=== PATIENT | male | born 1975 | race Caucasian/White ===

== ENCOUNTER 2023-07-24 15:48 | Outpatient (AMB) | payer OTHER, SELFPAY ==
--- NOTE | 2023-07-24 15:55 | MHC.PC.OV ---
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 Will order labs. Due for colon screen, will refer to GI. Pt was told previously by a urologist that he had an enlarged prostate. Will order PSA. Pt's blood pressure is elevated today. He reports that it is much more stable outside of the office. Denies chest pain, shortness of breath, headache, dizziness, and blurred vision. 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 COUNT INCLUDES THE [facility] Surgical History (Updated 07/24/23 @ 16:07 by Aron Zhu [facility]) S/P lumbar fusion S/P placement of nerve stimulator Hx of laminectomy Family History Mother Hypertension High cholesterol Father Heart attack Social History Housing: House Alcohol intake: never Patient Tobacco Use Status: Former Tobacco user Quit Date: 2006 Tobacco use type: Smokeless Tobacco Second Hand Smoke Exposure: No service: No Current occupational status: unemployed Cognitive needs: No Hearing needs: No Vision needs: Yes Questionnaire PHQ-9 Over the last 2 weeks, how often have you been bothered by any of the following problems? 1. Little interest or pleasure in doing things: several days 2. Feeling down, depressed, or hopeless: more than half the days 3. Trouble falling or staying asleep, or sleeping too much: more than half the days 4. Feeling tired or having little energy: several days 5. Poor appetite or overeating: not at all 6. Feeling bad about yourself - or that you are a failure or have let yourself or your family down: not at all 7. Trouble concentrating on things, such as reading the newspaper or watching television: not at all 8. Moving or speaking so slowly that other people could have noticed. Or the opposite - being so fidgety or restless that you have been moving around a lot more than usual: not at all 9. Thoughts that you would be better off or of hurting yourself in some way: not at all Total score: 6 Depression Screening Interpretation: Negative Depression Screening Done: Yes 36375 - PHQ-9 Billing: Yes Source: Developed by Drs. Saad Torrez, Xochilt Barrios, Krishan Mera and colleagues, with an educational saskia from [employer]. Thrive Questionnaire Date Thrive assessed: 07/24/23 I am a: Patient What is your living situation today?: I have a steady place to live Within the past 12 months, did the food you bought not last and you didn't have the money to get more?: Never true Within the past 12 months, did you worry whether your food would run out before you got money to buy more?: Never true Do you have trouble paying for medicines?: No Do you have trouble getting transportation to medical appointments?: No Do you have trouble paying your heating and electricity bill?: No Do you have trouble taking care of your child, family member or friend?: No Do you have trouble with day-to-day activities such as bathing, preparing meals, shopping, managing finances, etc.?: No Are you currently unemployed and looking for a job?: No Are you interested in more education?: No Please select the resources that you would like help with: None Currently or been in a relationship where the following occur: no concerns reported THRIVE Score: 0 KESHAWN-7 AMB Questionnaire KESHAWN-7 Date KESHAWN - 7 assessed: 07/24/23 Feeling nervous, anxious, or on edge: 0 = Not at all Not being able to stop or control worryin = Not at all Worrying too much about different things: 1 = Several days Trouble relaxin = Not at all Being so restless that it is hard to sit still: 0 = Not at all Becoming easily annoyed or irritable: 1 = Several days Feeling afraid as if something awful might happen: 0 = Not at all Total KESHAWN-7 score (0-4 normal; 5-9 mild; 10-14 moderate; 15-21 severe): 2 Source: Developed by Drs. Saad Torrez, Xochilt Barrios, Krishan Mera and colleagues, with an educational saskia from [employer]. KESHAWN-7 Assessment Billing KESHAWN-7 Assessment Tool: KESHAWN-7 Assessment 11559 Review of Systems Const Denies chills and Denies fever(s) Eyes Denies blurry vision ENT Denies vertigo, Denies dizziness and Denies sore throat Card Denies chest pain at rest, Denies chest pain with activity, Denies diaphoresis, Denies dyspnea and Denies dyspnea on exertion Resp Denies cough, Denies dyspnea, Denies dyspnea on exertion and Denies wheezing GI Denies abdominal pain, Denies melena, Denies hematochezia, Denies constipation, Denies diarrhea and Denies loose stools Denies hematuria Musc Denies numbness and Denies tingling Skin/Breast Denies lesions Neuro Denies vertigo, Denies dizziness, Denies numbness and Denies tingling Psych Denies anxiety, Denies depression, Denies homicidal ideation, Denies suicidal ideation and Denies other (substance abuse) Aller/Immun Denies wheezing Physical exam (Primary Care) Vital Signs: Last Vital Signs Pulse 86 07/24/23 16:00 BP 132/80 07/24/23 16:34 Pulse Ox 98 07/24/23 16:00 Oxygen Delivery Method Room Air 07/24/23 16:00 BMI result Body Mass Index 30.0 Tobacco/Smoking Status: Tobacco use Status Tobacco use date assessed 07/24/23 07/24/23 16:13 Patient Tobacco Use Status Former Tobacco user 07/24/23 16:13 Tobacco use type Smokeless Tobacco 07/24/23 16:13 PHQ-9: PHQ-9 Score PHQ-9: Total score 6 07/24/23 16:34 Depression Screening Interpretation: Negative Thrive Assessment: Date of Thrive Assessment Date Thrive assessed 07/24/23 07/24/23 16:13 Currently or been in a relationship where the following occur: no concerns reported Const General: cooperative Nutritional Appearance: well nourished Orientation/consciousness: patient oriented x3 HENMT Head: Yes normal to inspection, Yes normocephalic and Yes atraumatic Ears: TM's normal bilaterally Eyes General: appearance normal, both eyes and all related structures Alignment and Position: alignment normal and position normal Neck Neck: Yes normal visual inspection and Yes no lymphadenopathy Thyroid: Thyroid normal Resp Effort & Inspection: normal respiratory effort Auscultation: clear to auscultation bilaterally Cardio Rate: regular rate Rhythm: regular rhythm Heart sounds: S1 normal heart sound present, S2 normal heart sound present and no murmurs GI Palpation (GI): Soft to palpation and nontender Auscultation: normal bowel sounds Male General Exam: Yes normal external exam Penis: normal penis Scrotum: scrotum normal, testes descended bilaterally and no inguinal hernias Testes: no testicular mass Skin Rashes: no rashes Neuro General: patient oriented x3, moves all extremities, no focal motor deficits and deep tendon reflexes 2+ bilaterally Romberg Test: Negative Psych Appearance: grossly normal Mental Status: mental status grossly normal Speech and movement: Normal speech and movement present Affect: normal affect Attitude: cooperative Thought process: Normal thought process present Thought content: Normal thought content present Insight: Good insight present (Psych) Judgement: Good judgement present (Psych) Assessment and Plan Assessment & Plan (1) Physical exam: Code(s): Z00.00 - Encounter for general adult medical examination without abnormal findings Plan: Labs ordered (2) Screening for colon cancer: Code(s): Z12.11 - Encounter for screening for malignant neoplasm of colon Plan: Referred to GI (3) Enlarged prostate: Code(s): N40.0 - Benign prostatic hyperplasia without lower urinary tract symptoms Plan: psa ordered Plan The patient agreed to the use of a medical sales for this encounter. Scribed for FRANCO Driver by julian Jorgensen scribe, on 07/24/2023 at 16:15 EST. Orders: Orders Complete Blood Count Auto Diff Today Z00.00 - Encounter for general adult medical examination without abnormal findings Comprehensive [place]. Panel Fast Today Z00.00 - Encounter for general adult medical examination without abnormal findings Lipid Panel Today Z00.00 - Encounter for general adult medical examination without abnormal findings Prostate Specific Antigen Scr Today N40.0 - Benign prostatic hyperplasia without lower urinary tract symptoms TSH reflex Free T4 Today Z00.00 - Encounter for general adult medical examination without abnormal findings UA CC w/rflx Micro + Cult Today Z00.00 - Encounter for general adult medical examination without abnormal findings Referrals Gastroenterology Referral Z12.11 - Encounter for screening for malignant neoplasm of colon Coding Level of Care Code New Pt Prev Care 40-64y(62086) Diagnoses Physical exam Z00.00 Screening for colon cancer Z12.11 Enlarged prostate N40.0 Additional Codes KESHAWN-7 Assessment Billing - KESHAWN-7 Assessment Tool: KESHAWN-7 Assessment 88735 ([id number])
[2023-07-24 16:00] VITALS: BP 150/90; PULSE 86; O2SAT 98
[2023-07-24 16:11] VITALS: BP 146/88
[2023-07-24 16:34] VITALS: BP 132/80
== END 2023-07-24 16:58 | disposition home or self-care (01) ==
PROVIDERS: PCP Nurse Practitioner Family; Visit Provider Nurse Practitioner Family
DX: Z00.00 Encounter for general adult medical examination without abnormal findings (principal); Z12.11 Encounter for screening for malignant neoplasm of colon; N40.0 Benign prostatic hyperplasia without lower urinary tract symptoms
CPT/HCPCS: 99386

== ENCOUNTER 2023-07-25 07:50 | Outpatient (REF) | payer OTHER, SELFPAY ==
[2023-07-25 11:18] LABS: MANUAL DIFF FLAG NO
[2023-07-25 11:30] LABS: Appearance Urine Turbid; Color Urine Yellow; Glucose Urine UA Negative (Negative); Leukocyte Esterase Urine Negative (Negative); Nitrite Urine Positive (Negative); Specific Gravity - Urine >= 1.030 (1.005-1.025); UMIC TRIGGER UACC YES; Urine Blood Negative (Negative); Urine Ketones Negative (Negative); Urine Protein Trace mg/dL (Neg-Trace)
[2023-07-25 11:34] LABS: Basophils Absolute Auto 0.1 X10*3/uL (0.0-0.2); Basophils Percent Auto 1.2 % (0-2); Eosinophils Absolute Auto 0.5 X10*3/uL (0.0-0.4); Hematocrit 46.3 % (42.0-52.0); Hemoglobin 16.1 g/dl (14.0-18.0); Imm Gran Abs Auto 0.04 X10*3/uL (0.00-0.03); Imm Gran Pct Auto 0.5 % (0.0-0.4); Lymphocytes Absolute Auto 2.7 X10*3/uL (1.2-4.9); Lymphocytes Percent Auto 34.2 % (20-40); Mean Corpuscular HGB Conc 34.8 g/dl (31.0-36.0); Mean Corpuscular Hemoglobin 29.2 pg (27.0-33.0); Mean Corpuscular Volume 83.9 fL (80.0-98.0); Mean Platelet Volume 10.1 fL (9.4-12.4); Monocytes Absolute Auto 0.9 X10*3/uL (0.1-1.2); Monocytes Percent Auto 11.7 % (2-11); Neutrophils Absolute Auto 3.7 x10*3/uL (2.0-8.3); Neutrophils Percent Auto 46.4 % (45-73); Platelet Count 263 X10*3/uL (160-400); Red Blood Count 5.52 X10*6/uL (4.60-5.80); Red Cell Distribution Width 12.5 % (11.0-16.0)
[2023-07-25 11:59] LABS: Alanine Aminotransferase 13 U/L (0-40); Albumin Level 4.4 g/dL (3.5-5.0); Alkaline Phosphatase 51 U/L (39-117); Anion Gap 13 (12-20); Aspartate Amino Transferase 18 U/L (5-37); Bilirubin Total 0.6 mg/dL (0.0-1.0); Blood Urea Nitrogen 13 mg/dL (9-16); Calcium 9.2 mg/dL (8.4-10.2); Carbon Dioxide 28 mmol/L (22-29); Chloride 105 mmol/L (96-108); Cholesterol 190 mg/dL (<200); Estimated Glomerular Filt Rate > 60; Glucose Fasting 78 mg/dL (60-99); HDL Cholesterol 34 mg/dL (>40); LDL Cholesterol Calculated 117 mg/dL (<100); Potassium 3.7 mmol/L (3.3-5.1); Sodium 142 mmol/L (135-145); Total Protein 7.6 g/dL (6.5-8.0); Triglycerides 199 mg/dL (<150)
[2023-07-25 12:05] LABS: Bacteria Urine 1+ (None Seen); Calcium Oxalate Crystals Urine Present; Hyaline Casts Urine 0-2 /LPF (0-2); Other Crystals Urine Present; RBC Urine 0-2 /HPF (0-2); Squamous Epithelial Cell Urine 0-2 /HPF (0-2); UACC Culture Trigger YES; WBC Urine 0-5 /HPF (0-5)
[2023-07-25 12:15] LABS: TSH reflex Free T4 4.28 uIU/mL (0.32-4.0)
[2023-07-25 13:10] LABS: Free T4 (Free Thyroxine) 1.05 ng/dL (0.71-1.85)
== END 2023-07-25 07:51 | disposition home or self-care (01) ==
LOC: HO.HMGCLDS 07:50
PROVIDERS: PCP Nurse Practitioner Family; Visit Provider Nurse Practitioner Family
DX: Z00.00 Encounter for general adult medical examination without abnormal findings (principal); Z12.5 Encounter for screening for malignant neoplasm of prostate; N40.0 Benign prostatic hyperplasia without lower urinary tract symptoms
CPT/HCPCS: 36415; 80053; 80061; 81001; 81003; 84153; 84439; 84443; 85025; 87086

== ENCOUNTER 2023-10-31 11:00 | Outpatient (AMB) | payer OTHER, SELFPAY ==
[2023-10-31 11:04] VITALS: BP 140/78; PULSE 74; TEMP 36.3; O2SAT 96; BMI 30.3
--- NOTE | 2023-10-31 11:04 | MHC.OFFWIV ---
Intake Vital Signs 10/31/23 11:04 Height 5 ft 11 in Weight 217 lb BMI 30.3 BP 140/78 H Blood Pressure Location Lt brachial Position Sitting Pulse 74 Pulse Source Pulse Oximeter Temp 97.3 F Temp Source Temporal Artery Scan Pulse Oximetry (%) 96 Oxygen Delivery Method Room Air Intake Visit Reasons: EP ED? Erectile dysfunction? Intake Note: pt is here today for erectile dysfunction started 1 week ago Patient Tobacco Use Status: Former Tobacco user Quit Date: 2006 Allergies ketorolac [From Toradol] Allergy (Mild, Verified 10/31/23 11:41) Hives Medication List - Last Reconciled 10/31/23 by Manjit Pablo MD ibuprofen 800 mg PO TID Do you need a note to return to daycare/school/sports/work: No HPI EP ED? Erectile dysfunction? HPI Details 48-year-old male presented to the office for a sick visit. Patient after 4 years tried to be sexually active over the weekend. He has had multiple back surgeries. He has with a new partner, heterosexual. Unsatisfactory erection, incomplete intercourse with no ejaculation. Tried many times with no success. [facility] Surgical History (Updated 07/24/23 @ 16:07 by Aron Zhu PARTS COUNTER CLERK) S/P lumbar fusion S/P placement of nerve stimulator Hx of laminectomy Family History Mother Hypertension High cholesterol Father Heart attack Social History Housing: House Alcohol intake: never Patient Tobacco Use Status: Former Tobacco user Quit Date: 2006 Tobacco use type: Smokeless Tobacco Second Hand Smoke Exposure: No service: No Current occupational status: unemployed Cognitive needs: No Hearing needs: No Vision needs: Yes Physical Exam Vital Signs: Last Vital Signs Temp 97.3 F 10/31/23 11:04 Pulse 74 10/31/23 11:04 BP 140/78 H 10/31/23 11:04 Pulse Ox 96 10/31/23 11:04 Oxygen Delivery Method Room Air 10/31/23 11:04 BMI result Body Mass Index 30.3 Assessment & Plan Assessment & Plan (1) Erectile dysfunction: Code(s): N52.9 - Male erectile dysfunction, unspecified Plan: A prescription for Viagra given. Patient was advised to follow-up with primary care for further workup. Coding Level of Care Code Est Pt Level 3 (71586) Diagnoses Erectile dysfunction N52.9
== END 2023-10-31 12:11 | disposition home or self-care (01) ==
PROVIDERS: PCP Nurse Practitioner Family; Visit Provider Internal Medicine
DX: N52.9 Male erectile dysfunction, unspecified (principal)
CPT/HCPCS: 99213

== ENCOUNTER 2023-11-29 08:23 | Outpatient (AMB) | payer OTHER, SELFPAY ==
--- NOTE | 2023-11-29 08:24 | MHC.OFFVIS ---
Vital Signs 11/29/23 08:30 Height 5 ft 11 in Weight 217 lb 13.067 oz BMI 30.4 BP 136/84 Blood Pressure Location Rt brachial Position Sitting Pulse 70 Pulse Source Pulse Oximeter Pulse Oximetry (%) 98 Oxygen Delivery Method Room Air Intake Visit Reasons: Colonoscopy Screening Intake Note: Charlie presents in office today for a scheduled initial office visit / colo scrn; CC; Charlie denies any previous hx of colo s/p. Pt reports that their PCP recommended s/p strictly based on age related concerns. Pt denies any significant sx or concerns at this time. 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 male here today for pre colonoscopy screening.? Patient was sent to us by his PCP.? This is his first colonoscopy screening.? Patient denies any gastrointestinal symptoms in the past or at present.? Denies any personal or family history of gastrointestinal disease, colon polyps, or CRC.? Denies history of difficulty with sedation or anesthesia in the past.? Negative for history of sleep apnea.? Denies any history of cardiac, renal, pulmonary, or hepatic disease.?? No history of infectious? diseases like hepatitis A, B, C, HIV or tuberculosis.? Patient is not on any anticoagulation PFSH Surgical History S/P lumbar fusion S/P placement of nerve stimulator Hx of laminectomy Family History Mother Hypertension High cholesterol Father Heart attack Social History Housing: House Alcohol intake: never Patient Tobacco Use Status: Former Tobacco user Tobacco use type: Smokeless Tobacco Second Hand Smoke Exposure: No service: No Current occupational status: unemployed Cognitive needs: No Hearing needs: No Vision needs: Yes Review of Systems Const Denies weight gain and Denies weight loss ENT Reports no additional complaints, Denies dysphagia and Denies odynophagia Card Reports no additional complaints Resp Reports no additional complaints GI Denies abdominal pain, Denies belching, Denies melena, Denies bloating, Denies change in bowel habits, Denies dysphagia, Denies excessive flatus, Denies dyspepsia, Denies heartburn, Denies diarrhea, Denies loose stools, Denies nausea, Denies odynophagia and Denies vomiting Reports no additional complaints Musc Reports no additional complaints Neuro Reports no additional complaints Psych Reports no additional complaints Endo Reports no additional complaints Physical Exam Vital Signs: Last Vital Signs Pulse 70 11/29/23 08:30 BP 136/84 11/29/23 08:30 Pulse Ox 98 11/29/23 08:30 Oxygen Delivery Method Room Air 11/29/23 08:30 BMI result Body Mass Index 30.4 Const General: healthy appearing, no acute distress and well developed Nutritional Appearance: well nourished Orientation/consciousness: patient oriented x3 Resp Effort & Inspection: normal respiratory effort, able to speak in complete sentences, no tracheal deviation and symmetric chest movement Auscultation: clear to auscultation bilaterally Cardio Rate: regular rate GI Inspection: Yes normal to inspection and No distended Palpation (GI): Soft to palpation, not firm, nontender and No hepatosplenomegaly present Auscultation: normal bowel sounds General: Yes no CVA tenderness Back/Spine/Pelvis Back: no CVA tenderness Skin General skin exam: elasticity normal, turgor normal and dry skin Neuro General: patient oriented x3 Psych Appearance: grossly normal Mental Status: mental status grossly normal Assessment & Plan Assessment & Plan (1) Screening for colon cancer: Code(s): Z12.11 - Encounter for screening for malignant neoplasm of colon Category: Medical Plan Patient denies any GI, cardiac or respiratory symptoms.? Denies any issues with anesthesia in the past.? History of sleep apnea, not on CPAP.? No history infectious diseases in the past or present.? Not on any anticoagulation therapy.? No family or personal history of colon cancer or polyps.? Patient denies melena, hematochezia, unintentional weight loss or ribbon like stools.? Discussed at length the pre-procedure,? prep, diet & medications as well as what to expect prior, during and after the procedure.?? Stressed the importance of good bowel prep.? Recommended the use of Vaseline or Calmoseptine OTC & baby wipes with bowel movements to promote comfort.? ?Patient verbalizes understanding and agrees to plan of care.? He was given the opportunity to ask questions and all questions answered.? We will see him after the procedure.? Medications: New bisacodyl (Dulcolax (bisacodyl)) take 4 tabs at noon the day before your colonoscopy 20 mg (4 x 5 mg) PO ONCE 4 tabs 0RF 1 day Z12.11 - Encounter for screening for malignant neoplasm of colon polyethylene glycol 3350 (Miralax) As directed by gastroenterology department at [facility] 238 grams PO ONCE 238 grams 0RF Z12.11 - Encounter for screening for malignant neoplasm of colon Coding Level of Care Code New Pt Level 3 (82405) Diagnoses Screening for colon cancer Z12.11 Time Spent (min) 40 Comment 30 minutes spent with patient and additional 10 minutes spent reviewing his records
[2023-11-29 08:30] VITALS: BP 136/84; PULSE 70; O2SAT 98; BMI 30.4
== END 2023-11-29 09:18 | disposition home or self-care (01) ==
PROVIDERS: PCP Nurse Practitioner Family; Visit Provider Nurse Practitioner Family
DX: Z01.818 Encounter for other preprocedural examination (principal); Z12.11 Encounter for screening for malignant neoplasm of colon
CPT/HCPCS: S0285

== ENCOUNTER → 2023-11-29 08:23 | Outpatient (BNVA) | payer OTHER, SELFPAY | PROVIDERS: PCP Nurse Practitioner Family; Visit Provider Nurse Practitioner Family ==

== ENCOUNTER 2024-05-07 06:25 | Day surgery (SDC) | payer OTHER, SELFPAY ==
[2024-05-01 13:44] VITALS: BMI 30.4
--- NOTE | 2024-05-06 09:32 | HO.ANESPROP2 ---
Documented by User: Brenda Jasso NP 05/06/24 09:33 HPI - Anesthesia Eval Consult details Narrative: 48yo M for Colonoscopy PMF Active Problems Active Problems: All Active Problems Abnormal urinalysis (Acute) Elevated TSH (Acute) Enlarged prostate (Acute) Screening for colon cancer (Acute) Physical exam (Acute) Past Medical History Medical History Enlarged prostate Family History Family History Mother Hypertension High cholesterol Father Heart attack Surgical History Surgical History S/P lumbar fusion S/P placement of nerve stimulator Hx of laminectomy Social History Social History Housing: House Alcohol intake: never Patient Tobacco Use Status: Former Tobacco user Tobacco use type: Smokeless Tobacco Second Hand Smoke Exposure: No Have you been hit, kicked, punched, or otherwise hurt by someone within the past year? If so, by whom?: No Are you DNR?: No Advance Directives: No Advance Directives Information Provided: Yes service: No Current occupational status: unemployed Cognitive needs: No Hearing needs: No Vision needs: Yes Meds Allergies Allergy/AdvReac Type Severity Reaction Status Date / Time ketorolac [From Toradol] Allergy Mild Hives Verified 11/29/23 08:30 Home Medications ?Medication ?Instructions ?Recorded ?Confirmed ?Last Taken ?Type No Known Home Meds 05/07/24 05/07/24 Unknown History Exam Height,Weight and Vital Signs: Height 5 ft 11 in Weight 98.883 kg Assessment and Plan Assessment Anesthesia Assessment: Chart Reviewed Documented by User: Klaudia Llamas MD 05/07/24 08:48 PMFSH Past Medical History Medical History Enlarged prostate Family History Family History Mother Hypertension High cholesterol Father Heart attack Family history of problems with anesthesia: No Surgical History Surgical History S/P lumbar fusion S/P placement of nerve stimulator Hx of laminectomy History of Problems with Anesthesia: No Social History Social History Housing: House Alcohol intake: never Patient Tobacco Use Status: Former Tobacco user Tobacco use type: Smokeless Tobacco Second Hand Smoke Exposure: No Have you been hit, kicked, punched, or otherwise hurt by someone within the past year? If so, by whom?: No Are you DNR?: No Advance Directives: No Advance Directives Information Provided: Yes service: No Current occupational status: unemployed Cognitive needs: No Hearing needs: No Vision needs: Yes Meds Allergies Allergy/AdvReac Type Severity Reaction Status Date / Time ketorolac [From Toradol] Allergy Mild Hives Verified 11/29/23 08:30 Home Medications ?Medication ?Instructions ?Recorded ?Confirmed ?Last Taken ?Type No Known Home Meds 05/07/24 05/07/24 Unknown History Exam Airway Mallampati Class: II TM Dist: >3cm Neck ROM: Full Heart: rrr Lungs: cta Assessment and Plan Assessment Anesthesia Assessment: Anesthesia Plan Discussed Final Anesthetic Review Family History of Problems with Anesthesia: No History of Problems with Anesthesia: No NPO: Yes ASA Class: II Final Preanesthetic Review: No Changes in Pt Med Stat, Meds/Allgs Chart Reviewed, Consent Obtained/Reviewed and Anes Risks/Benef Reviewed Patient Risk: Low Procedure Risk: Low Anesthetic Plan Anesthetic Plan: MAC: Disposition: Standard PACU
--- NOTE | 2024-05-07 06:50 | MHC.SHP ---
Pre-Procedural Eval Section A - 24 Hr Update-Section A only Date of Service: 05/07/24 Section B - Complete if H&P > 30 days Chief Complaint: Encounter for screening for malignant neoplasm of Relevant Family History (Specify if Yes): No Relevant Social History: None Present Medications: see Short Stay Collaborative assessment Medical History: Significant History (bph) History of Previous Operations: Relevant previous surgery/procedure and date(s) ( S/P lumbar fusion S/P placement of nerve stimulator Hx of laminectomy) Allergies: Allergies Allergy/AdvReac Type Severity Reaction Status Date / Time ketorolac [From Toradol] Allergy Mild Hives Verified 11/29/23 08:30 Review of Systems Sugical H&P ROS: Negative: Constitution, Cardiovascular, Respiratory, Neurological, Psychiatric, Hem-Onc, Allergic/Immunologic, Gastrointestinal, Genitourinary, Musculoskeletal, Integumentary, Endocrine and Eyes/Ears/Nose/Throat Exam Surgical H&P Exam: Normal: HEENT, Normal: Heart, Normal: Lungs, Normal: Extremities, Normal: Abdomen, Normal: Skin and Normal: Neurological Plan Diagnosis/Plan: Unchanged I have reviewed the history and physical and performed a pertinent physical examination on my patient. No changes have occurred unless specified. Time Spent With Patient Time: Total time managing care of this patient today ____ minutes.
[2024-05-07 06:54] VITALS: BP 121/77; PULSE 69; RESP 20; TEMP 35.8; O2SAT 99
[2024-05-07] MEDS: Lactated Ringers 1,000 ML 100 ML IVCONT (07:07)
--- NOTE | 2024-05-07 08:05 | P.OPN-COLO_ITS ---
Colonoscopy Operative Note Operative Note Date of Service: 05/07/24 Narrative: Operative Information Procedure Description: Colonoscopy Indication: screening Anesthesia: MAC COLONOSCOPY Instrument: Olympus variable stiffness pediatric scope 190L Colonoscopy Monitoring: Vital signs and clinical assessment, continuous EKG monitoring, Pulse oximetry, Carbon Dioxide monitoring and blood pressure monitoring were done throughout the procedure. Colon withdrawal time was 12 minutes. Procedure: The patient was placed in the left lateral decubitis position and pre-procedure medications were administered. After a digital rectal examination of the ano-rectum, the video colonoscope was inserted into the rectum and advanced through the colon to the cecum/TI. The colonoscope was slowly withdrawn in a retrograde panoramic fashion and the colon mucosa was carefully examined including a retroflexed view of the rectum. Findings and interventions are described below. Procedure Difficulty: easy Findings: Terminal Ileum-normal Cecum:normal Right sided retroflexion- normal Ascending Colon: normal Transverse Colon -normal Descending Colon:normal Sigmoid Colon: moderate diverticulosis, 8-10 mm sessile polyp removed with cold snare Rectum: Retroflexion with moderate sized internal hemorrhoids seen, grade I Anorectum - normal Intervention: cold snare Colon preparation: [place] Bowel Preparation Scale Right colon; 2 Transverse colon: 2 Left colon; 2 (0 = Unprepared colon segment with mucosa not seen due to solid stool that cannot be cleared. 1 = Portion of mucosa of the colon segment seen, but other areas of the colon segment not well seen due to staining, residual stool and/or opaque liquid. 2 = Minor amount of residual staining, small fragments of stool and/or opaque liquid, but mucosa of colon segment seen well. 3 = Entire mucosa of colon segment seen well with no residual staining, small fragments of stool or opaque liquid) Impression and Post Procedure Diagnosis: diverticulosis colon polyp internal hemorrhoids Plan: High fiber diet leaflet Avoid straining at stool, epsom salts and sitz bath, anusol supps or cream Repeat Colonoscopy in 5 years if adenoma, 10 yrs if hyperplastic or earlier if clinically indicated Above findings were reviewed with the patient and relevant handouts were provided if indicated.
[2024-05-07 08:09] VITALS: BP 95/50; PULSE 75; RESP 16; TEMP 36.1; O2SAT 94
[2024-05-07 08:24] VITALS: BP 122/76; PULSE 77; RESP 16; O2SAT 97
== END 2024-05-07 08:49 | disposition home or self-care (01) ==
PROVIDERS: PCP Nurse Practitioner Family; Visit Provider Internal Medicine Gastroenterology
PROC: 0DJD8ZZ Inspection of Lower Intestinal Tract, Via Natural or Artificial Opening Endoscopic (ICD-10-PCS; CPT 45378; principal; 2024-05-07 07:30)
DX: Z12.11 Encounter for screening for malignant neoplasm of colon (principal); D12.5 Benign neoplasm of sigmoid colon; K57.30 Diverticulosis of large intestine without perforation or abscess without bleeding; K64.0 First degree hemorrhoids; N40.0 Benign prostatic hyperplasia without lower urinary tract symptoms; Z98.1 Arthrodesis status; Z98.890 Other specified postprocedural states; Z88.8 Allergy status to other drugs, medicaments and biological substances; Z87.891 Personal history of nicotine dependence; Z56.0 Unemployment, unspecified
CPT/HCPCS: 45385; 88305; J0171; J2003; J2704

== ENCOUNTER → 2024-05-07 06:25 | Outpatient (BNV) | payer OTHER, SELFPAY | PROVIDERS: PCP Nurse Practitioner Family; Visit Provider Internal Medicine Gastroenterology | DX: Z12.11 Encounter for screening for malignant neoplasm of colon (principal); D12.5 Benign neoplasm of sigmoid colon; K57.30 Diverticulosis of large intestine without perforation or abscess without bleeding; K64.0 First degree hemorrhoids | CPT/HCPCS: 45385 ==

== ENCOUNTER 2024-08-20 15:49 | Outpatient (AMB) | payer OTHER, SELFPAY ==
[2024-08-20 15:57] VITALS: BP 130/80; PULSE 64; TEMP 36.7; O2SAT 97; BMI 31.5
--- NOTE | 2024-08-20 15:57 | A.OFFPC_ITS ---
Vital Signs 08/20/24 15:57 Height 5 ft 11 in Weight 226 lb BMI 31.5 BP 130/80 Blood Pressure Location Lt brachial Position Sitting Pulse 64 Pulse Source Pulse Oximeter Temp 98.0 F Temp Source Oral Pulse Oximetry (%) 97 Oxygen Delivery Method Room Air Intake Visit Reasons: ANNUAL PE Intake Note: pt is here for annual exam Assistant At Surgery Required: No Accompanied by: Self / Same As Patient Allergies ketorolac [From Toradol] Allergy (Mild, Verified 08/20/24 16:44) Hives banana Allergy (Mild, Uncoded 08/20/24 16:44) Itching Medication List - Last Reconciled 08/20/24 by ANKIT Parrish- No Known Home Meds Tobacco use date assessed: 08/20/24 Dental Screening Dental Screen Date: 08/20/24 Did you have a dental visit in the last 12 months?: Yes Did you have a dental problem in the last 6 months where you did not have access to dental care?: No Was dental information given to patient?: Patient has dentist HPI ANNUAL PE HPI Details History of Present Illness The patient is a 49-year-old male presenting for a physical examination with specific complaints of left-sided abdominal pain and testicular discomfort radiating to the right groin. The abdominal pain is generalized, dull in quality, and non-tender upon palpation, with no associated gastrointestinal symptoms associated. The testicular discomfort, present for approximately 10 months, is not associated with any identifiable masses or hernias on examination. The patient has a past history of lower back surgeries but currently denies symptoms suggestive of cauda equina syndrome. He notes post-void dribbling but declined a digital rectal exam today. The patient is current with colon cancer screenings and denies any acute cardiopulmonary symptoms, ongoing gastrointestinal concerns like abnormal stool, or disruptions in bowel habits. Health Maintenance - Colon cancer screening is up-to-date - Ear lavage and use of curette complete d for right ear with right tympanic membrane visible; left ear remains partially blocked by cerumen - PSA ordered Social History Review of Systems - Constitutional: Denies fever, weight c hange - Respiratory: Denies chest pain, shortn ess of breath - Gastrointestinal: Denies nausea, vomit ing, constipation, diarrhea; denies blood in stool - Genitourinary: Reports groin discomfor t; denies masses or lesions; reports dribbling post-urination - Neurologic: Denies symptoms indicative of cauda equina syndrome - Psychiatric: Denies suicidal or homici chuy ideation Physical Exam General: Cooperative, healthy appearing, comfortable, no acute distress and well developed Orientation: Patient oriented x3 Limitations: No limitations Head: Normal to inspection Ears: Right ear completely clear after lavage and curette; left TM slightly blocked with residual cerumen Nose: Normal external nose present Face and sinus: Normal facial exam Eyes: Appearance normal, both eyes and all related structures Neck: Normal visual inspection and Yes full ROM Respiratory: Normal respiratory effort and able to speak in complete sentences. Clear to auscultation bilaterally Cardiovascular: Regular rate and rhythm. Normal S1 and S2 GI: Normal to inspection. Soft to palpation and nontender : testicular exam was neg, no inguinal hernias appreciated on exam Neuro: Patient oriented x3 Extremities: Normal to inspection Results Plan A CT scan is planned to evaluate for potential inguinal hernia and investigate left-sided abdominal discomfort. PSA testing is ordered due to urinary dribbling. Debrox will be used to address left ear cerumen blockage. The patient should monitor for changes in symptoms and seek earlier review if needed. Discussion Notes I discussed the likely causes of the patient's groin and abdominal symptoms, explaining that imaging would help identify potential issues such as a hernia. The benefits of confirming these conditions outweigh the minimal risks associated with a CT scan, and the patient understood the rationale. We reviewed possible causes for post-void dribbling, determining a PSA level would be informative. Proper ear hygiene with Debrox was recommended, outlining its non- invasive nature. Follow-up in one year is planned unless symptoms warrant earlier attention. Patient Instructions - Complete the course of Debrox to left ear for three days, then perform self- irrigation with warm water. - Attend the imaging appointment as sche duled. - Monitor for worsening symptoms in the abdomen or groin and seek earlier medical attention if necessary. - Return for follow-up as discussed or b efore if new problems arise. [facility] Medical History Enlarged prostate Surgical History S/P lumbar fusion S/P placement of nerve stimulator Hx of laminectomy Family History Mother Hypertension High cholesterol Father Heart attack Social History Housing: House Alcohol intake: never Patient Tobacco Use Status: Former Tobacco user Tobacco use type: Smokeless Tobacco Second Hand Smoke Exposure: No service: No Current occupational status: unemployed Cognitive needs: No Hearing needs: No Vision needs: Yes Questionnaire PHQ-9 Over the last 2 weeks, how often have you been bothered by any of the following problems? 1. Little interest or pleasure in doing things: not at all 2. Feeling down, depressed, or hopeless: not at all 3. Trouble falling or staying asleep, or sleeping too much: not at all 4. Feeling tired or having little energy: not at all 5. Poor appetite or overeating: not at all 6. Feeling bad about yourself - or that you are a failure or have let yourself or your family down: not at all 7. Trouble concentrating on things, such as reading the newspaper or watching television: not at all 8. Moving or speaking so slowly that other people could have noticed. Or the opposite - being so fidgety or restless that you have been moving around a lot more than usual: not at all 9. Thoughts that you would be better off or of hurting yourself in some way: not at all Total score: 0 Depression Screening Interpretation: Negative Depression Screening Done: Yes 44629 - PHQ-9 Billing: Yes Source: Developed by Drs. Saad Torrez, Xochilt Barrios, Krishan Mera and colleagues, with an educational saskia from [employer]. Thrive Questionnaire Date Thrive assessed: 08/20/24 I am a: Patient What is your living situation today?: I have a steady place to live Within the past 12 months, did the food you bought not last and you didn't have the money to get more?: Never true Within the past 12 months, did you worry whether your food would run out before you got money to buy more?: Never true Do you have trouble paying for medicines?: No Do you have trouble getting transportation to medical appointments?: No Do you have trouble paying your heating and electricity bill?: No Do you have trouble taking care of your child, family member or friend?: No Do you have trouble with day-to-day activities such as bathing, preparing meals, shopping, managing finances, etc.?: No Are you currently unemployed and looking for a job?: No Are you interested in more education?: No Please select the resources that you would like help with: None Currently or been in a relationship where the following occur: No concerns reported THRIVE Score: 0 AUDIT C Alcohol Use Questionnaire (AUDIT-C) 1. How often do you have a drink containing alcohol?: 2-4 times a month 2. How many drinks containing alcohol do you have on a typical day when you are drinking?: 3 or 4 3. How often do you have six or more drinks on one occasion?: Less than monthly Total Score: 4 Score Reviewed/Action Taken: Yes KESHAWN-7 AMB Questionnaire KESHAWN-7 Date KESHAWN - 7 assessed: 08/20/24 Feeling nervous, anxious, or on edge: 0 = Not at all Not being able to stop or control worryin = Not at all Worrying too much about different things: 0 = Not at all Trouble relaxin = Not at all Being so restless that it is hard to sit still: 0 = Not at all Becoming easily annoyed or irritable: 0 = Not at all Feeling afraid as if something awful might happen: 0 = Not at all Total KESHAWN-7 score (0-4 normal; 5-9 mild; 10-14 moderate; 15-21 severe): 0 Source: Developed by Drs. Saad Torrez, Xochilt Barrios, Krishan Mera and colleagues, with an educational saskia from [employer]. KESHAWN-7 Assessment Billing KESHAWN-7 Assessment Tool: KESHAWN-7 Assessment 71335 Physical exam (Primary Care) Vital Signs: Last Vital Signs Temp 98.0 F 08/20/24 15:57 Pulse 64 08/20/24 15:57 BP 130/80 08/20/24 15:57 Pulse Ox 97 08/20/24 15:57 Oxygen Delivery Method Room Air 08/20/24 15:57 BMI result Body Mass Index 31.5 Tobacco/Smoking Status: Tobacco use Status Tobacco use date assessed 03/18/25 03/18/25 15:59 Patient Tobacco Use Status Former Tobacco user 08/20/24 15:59 Tobacco use type Smokeless Tobacco 08/20/24 15:59 PHQ-9: PHQ-9 Score PHQ-9: Total score 0 08/20/24 15:59 Depression Screening Interpretation: Negative Thrive Assessment: Date of Thrive Assessment Date Thrive assessed 08/20/24 08/20/24 15:59 Currently or been in a relationship where the following occur: No concerns reported Office Procedures Cerumen Removal From which ear canal was the cerumen removed: bilateral Removal: irrigation and cerumen loop/spoon Notes: patient tolerated procedure well, no complications and ear canal clear (clear right, residual cerumen to left close to TM) 07610-Wmi Irrigation/Lavage (also cpt 42267) Coding Level of Care Code Est Pt Prev Care 40-64y(97019) Diagnoses Physical exam Z00.00 Screening for prostate cancer Z12.5 Scrotal pain N50.82 Right inguinal pain R10.31 Excessive cerumen in both ear canals H61.23 CPT Codes Office Procedure - CPT: 61940-Ikh Irrigation/Lavage ([id number]) Additional Codes KESHAWN-7 Assessment Billing - KESHAWN-7 Assessment Tool: KESHAWN-7 Assessment 10748 ([id number]) PHQ-9 - 23392 - PHQ-9 Billing: Yes ([id number]) Assessment & Plan Assessment & Plan (1) Physical exam: Code(s): Z00.00 - Encounter for general adult medical examination without abnormal findings Category: Medical (2) Screening for prostate cancer: Code(s): Z12.5 - Encounter for screening for malignant neoplasm of prostate Category: Medical (3) Scrotal pain: Code(s): N50.82 - Scrotal pain Category: Medical (4) Right inguinal pain: Code(s): R10.31 - Right lower quadrant pain Category: Medical (5) Excessive cerumen in both ear canals: Code(s): H61.23 - Impacted cerumen, bilateral Category: Medical Plan . Orders: Orders TSH reflex Free T4 Today Z00.00 - Encounter for general adult medical examination without abnormal findings UA CC w/rflx Micro + Cult Today Z00.00 - Encounter for general adult medical examination without abnormal findings Lipid Panel Today Z00.00 - Encounter for general adult medical examination without abnormal findings Prostate Specific Antigen Scr Today Z12.5 - Encounter for screening for malignant neoplasm of prostate CT abdomen pelvis w IV con Today R10.31 - Right lower quadrant pain Complete Blood Count Auto Diff Today Z00.00 - Encounter for general adult medical examination without abnormal findings Comprehensive [place]. Panel Fast Today Z00.00 - Encounter for general adult medical examination without abnormal findings US scrotum Today N50.82 - Scrotal pain
== END 2024-08-20 17:03 | disposition home or self-care (01) ==
LOC: HO.HMCC 15:50
PROVIDERS: PCP Nurse Practitioner Family; Visit Provider Nurse Practitioner Family
DX: Z00.00 Encounter for general adult medical examination without abnormal findings (principal); N50.82 Scrotal pain; R10.31 Right lower quadrant pain; H61.23 Impacted cerumen, bilateral; Z12.5 Encounter for screening for malignant neoplasm of prostate

== ENCOUNTER → 2024-08-20 15:49 | Outpatient (BNVA) | payer OTHER, SELFPAY | PROVIDERS: PCP Nurse Practitioner Family; Visit Provider Nurse Practitioner Family | DX: Z00.01 Encounter for general adult medical examination with abnormal findings (principal); H61.23 Impacted cerumen, bilateral; N50.82 Scrotal pain; R10.31 Right lower quadrant pain | CPT/HCPCS: 69210; 96127 ==

== ENCOUNTER 2024-08-30 07:14 | Outpatient (REF) | payer OTHER, SELFPAY ==
[2024-08-30 10:18] LABS: MANUAL DIFF FLAG NO
[2024-08-30 10:23] LABS: Basophils Absolute Auto 0.1 X10*3/uL (0.0-0.2); Basophils Percent Auto 1.5 % (0-2); Eosinophils Absolute Auto 0.3 X10*3/uL (0.0-0.4); Eosinophils Percent Auto 6.1 % (0-4); Hematocrit 44.8 % (42.0-52.0); Hemoglobin 15.9 g/dl (14.0-18.0); Imm Gran Abs Auto 0.02 X10*3/uL (0.00-0.03); Imm Gran Pct Auto 0.4 % (0.0-0.4); Lymphocytes Absolute Auto 1.5 X10*3/uL (1.2-4.9); Lymphocytes Percent Auto 28.4 % (20-40); Mean Corpuscular HGB Conc 35.5 g/dl (31.0-36.0); Mean Corpuscular Hemoglobin 29.2 pg (27.0-33.0); Mean Corpuscular Volume 82.4 fL (80.0-98.0); Mean Platelet Volume 10.3 fL (9.4-12.4); Monocytes Absolute Auto 0.8 X10*3/uL (0.1-1.2); Monocytes Percent Auto 14.4 % (2-11); Neutrophils Absolute Auto 2.6 x10*3/uL (2.0-8.3); Neutrophils Percent Auto 49.2 % (45-73); Platelet Count 211 X10*3/uL (160-400); Red Blood Count 5.44 X10*6/uL (4.60-5.80); Red Cell Distribution Width 12.9 % (11.0-16.0); White Blood Count 5.2 X10*3/uL (4.8-10.8)
[2024-08-30 10:24] LABS: Appearance Urine Turbid; Color Urine Yellow; Glucose Urine UA Negative (Negative); Leukocyte Esterase Urine Negative (Negative); Nitrite Urine Negative (Negative); PH 5.5 (5.0-9.0); Urine Blood Negative (Negative); Urine Ketones Negative (Negative); Urine Protein Negative (Neg-Trace)
[2024-08-30 11:01] LABS: Prostate Specific Antigen Scr 0.75 ng/mL (<0.05-4.0)
[2024-08-30 11:18] LABS: Alanine Aminotransferase 24 U/L (0-40); Albumin Level 4.5 g/dL (3.5-5.0); Alkaline Phosphatase 44 U/L (39-117); Anion Gap 10 (12-20); Aspartate Amino Transferase 26 U/L (5-37); Bilirubin Total 0.3 mg/dL (0.0-1.0); Blood Urea Nitrogen 22 mg/dL (9-16); Calcium 9.1 mg/dL (8.4-10.2); Carbon Dioxide 27 mmol/L (22-29); Chloride 106 mmol/L (96-108); Cholesterol 210 mg/dL (<200); Estimated Glomerular Filt Rate > 60; Glucose Fasting 94 mg/dL (60-99); HDL Cholesterol 34 mg/dL (>40); LDL Cholesterol Calculated 127 mg/dL (<100); Potassium 4.4 mmol/L (3.3-5.1); Sodium 139 mmol/L (135-145); Total Protein 7.7 g/dL (6.5-8.0); Triglycerides 245 mg/dL (<150)
== END 2024-08-30 07:15 | disposition home or self-care (01) ==
LOC: HO.HMGCLDS 07:14
PROVIDERS: PCP Nurse Practitioner Family; Visit Provider Nurse Practitioner Family
DX: Z00.00 Encounter for general adult medical examination without abnormal findings (principal); Z12.5 Encounter for screening for malignant neoplasm of prostate; Z13.6 Encounter for screening for cardiovascular disorders
CPT/HCPCS: 36415; 80053; 80061; 81003; 84153; 84443; 85025

== ENCOUNTER 2024-10-14 12:55 | Outpatient (REF) | payer OTHER, SELFPAY ==
--- NOTE | ~2024-10-14 | US_ITS ---
CLINICAL HISTORY: N50.82 - Scrotal pain US scrotum with Doppler Comparison: None Technique: Real time sonographic imaging, including color-flow imaging and spectral analysis, was performed by the analyst business analysis. Multiple financial foundations representative static images were saved for review. Findings: Right testicle normal size and echotexture, 4.9 x 3.0 x 3.7 cm. Normal color flow and spectral tracing. Left testicle normal size and echotexture, 4.7 x 2.6 x 3.3 cm. Normal color flow and spectral tracing. No significant epididymal abnormalities. Minimal bilateral scrotal hydroceles noted. No inguinal hernia is identified. Impression: No significant abnormality. This document has been electronically signed by: Jhonathan Pham MD on 10/14/2024 19:34:10
== END 2024-10-14 12:56 | disposition home or self-care (01) ==
LOC: HO.US 12:55
PROVIDERS: PCP Nurse Practitioner Family; Visit Provider Nurse Practitioner Family
DX: N50.82 Scrotal pain (principal)
CPT/HCPCS: 76870

== ENCOUNTER → 2024-10-14 12:58 | Outpatient (BNV) | payer OTHER, SELFPAY | PROVIDERS: PCP Nurse Practitioner Family; Visit Provider Radiology Diagnostic Radiology | DX: N50.82 Scrotal pain (principal); N43.3 Hydrocele, unspecified | CPT/HCPCS: 76870; 93976 ==